=== PATIENT | male | born 1970 | race Caucasian/White ===

== ENCOUNTER → 2019-03-14 | Outpatient (CLI) | payer BC ==
--- NOTE | 2019-03-14 12:17 | CT ---
EXAMINATION TYPE: CT hip LT wo con DATE OF EXAM: 03/14/2019 COMPARISON: Non- HISTORY: Pain Lt Hip, severe posttraumatic osteoarthritis all per order. CT DLP: 355.6 mGycm Automated exposure control for dose reduction was used. FINDINGS: There is fusion plate through the posterior inferior aspect of the iliac bone extending along posteri or wall nearly to level of ischial tuberosity through healed fracture. There is small well-defined fr agmentation along medial aspect of the humeral head suggesting old in age measuring 1.4 x 0.3 cm seen best coronal image 33. There is moderate to severe collar spurring at head neck junction in the left femoral head. There is moderate to severe superior narrowing with subchondral cystic change and mode rate acetabular spurring on superior aspect of the acetabulum. Some mild acetabular bony spurring or overgrowth is noted. Muscle bulk in the left thigh is felt within normal limits. No suspicious hernia or adenopathy in the groin is present. IMPRESSION: POSTTRAUMATIC CHANGES WITH MODERATE TO SEVERE DEGENERATIVE CHANGE LEFT HIP DETAILED ABOVE
== END | disposition home or self-care (01) ==
LOC: RADCTMAIN 11:22
PROVIDERS: ATTEND Orthopaedic Surgery
DX: M16.52 Unilateral post-traumatic osteoarthritis, left hip (principal)

== ENCOUNTER → 2019-04-21 | Outpatient (CLI) | payer BC ==
[2019-04-21 08:19] LABS: Basophils % (A) 0 %; Eosinophils # (A) 0.2 k/uL (0-0.7); Eosinophils % (A) 3 %; HCT 44.7 % (39.0-53.0); HGB 14.4 gm/dL (13.0-17.5); Lymphocytes # (A) 1.7 k/uL (1.0-4.8); Lymphocytes % (A) 28 %; MCH 27.7 pg (25.0-35.0); MCHC 32.3 g/dL (31.0-37.0); MCV 85.6 fL (80.0-100.0); Mean Platelet Volume 7.7; Monocytes # (A) 0.4 k/uL (0-1.0); Monocytes % (A) 7 %; Neutrophils # (A) 3.5 k/uL (1.3-7.7); Neutrophils % (A) 60 %; Platelet Count 171 k/uL (150-450); RBC 5.22 m/uL (4.30-5.90); RDW 14.7 % (11.5-15.5); WBC 5.9 k/uL (3.8-10.6)
[2019-04-21 08:26] LABS: INR 0.9 (<1.2); Partial Thromboplastin Time 22.6 sec (22.0-30.0); Prothrombin Time 9.7 sec (9.0-12.0)
[2019-04-21 08:28] LABS: Appearance,Urine Clear (Clear); Bilirubin,Urine Negative (Negative); Blood,Urine Negative (Negative); Color,Urine Yellow; Glucose,Urine (UA) Negative (Negative); Ketones,Urine Negative (Negative); Leukocyte Esterase,Urine Negative (Negative); Nitrite,Urine Negative (Negative); PH, Urine 6.5 (5.0-8.0); Protein,Urine Negative (Negative); Urobilinogen,Urine <2.0 mg/dL (<2.0)
[2019-04-21 08:29] LABS: ALT 47 U/L (21-72); AST 29 U/L (17-59); African American GFR (CKD) >90 (>60 ml/min/1.73 sqM); Albumin 4.4 g/dL (3.5-5.0); Alkaline Phosphatase 44 U/L (38-126); Anion Gap 7 mmol/L; Blood Urea Nitrogen 21 mg/dL (9-20); Calcium 9.2 mg/dL (8.4-10.2); Carbon Dioxide 30 mmol/L (22-30); Chloride 106 mmol/L (98-107); Cholesterol 198 mg/dL (<200); Glucose 112 mg/dL (74-99); HDL Cholesterol 30 mg/dL (40-60); LDL Cholesterol,Calculated 120 mg/dL (0-99); Sodium 143 mmol/L (137-145); Total Bilirubin 1.1 mg/dL (0.2-1.3); Total Protein 7.2 g/dL (6.3-8.2); Triglycerides 241 mg/dL (<150)
== END | disposition home or self-care (01) ==
LOC: LABPAT 07:04
PROVIDERS: ATTEND Orthopaedic Surgery
DX: Z01.812 Encounter for preprocedural laboratory examination (principal); E78.2 Mixed hyperlipidemia; M16.12 Unilateral primary osteoarthritis, left hip
CPT/HCPCS: 36415; 80053; 80061; 81003; 85025; 85610; 85730; 87070

== ENCOUNTER → 2019-04-21 | Outpatient (CLI) | payer BC ==
--- NOTE | 2019-04-21 12:13 | EST ---
EXERCISE STRESS DATE OF SERVICE: 04/21/2019 AGE: 48 SEX: Male HT: 5'9" WT: 215 pounds PROTOCOL: Cardiolite Bartolome STAGE: IV DURATION OF EXERCISE: 10 minutes 30 seconds HEART RATE REST: 62 BLOOD PRESSURE REST: 116/92 MAXIMUM HEART RATE ACHIEVED: 164 MAXIMUM BLOOD PRESSURE: 215/96 85% MPHR: 145 100% MPHR: 171 METS: 12.1 INDICATIONS: Abnormal EKG. CLINICAL INFORMATION: Baseline rhythm is a sinus mechanism, rate of 62, borderline right axis deviation. Baseline blood pressure 116/92 mmHg. Patient exercised on Bartolome protocol for 10 minute 30 seconds reaching a peak rate 164 beats per minute which is equal to 96% maximum predicted heart rate. Peak blood pressure 215/96 mmHg. Test was terminated secondary to fatigue. There was no chest pain. Electrocardiograph monitoring revealed no evidence of diagnostic ischemic ST deviation. Cardiolite was injected at peak exercise. CONCLUSION: 1. Good exercise tolerance with normal electrocardiograph response to exercise. 2. Rare PVCs. 3. Nuclear images will be reported separately. MMODL / IJN: [id number] /
--- NOTE | 2019-04-21 13:36 | NM ---
EXAMINATION TYPE: NM stress cardiolite complete DATE OF EXAM: 04/21/2019 COMPARISON: NONE HISTORY: Abnormal EKG TECHNIQUE: After the intravenous administration of 9.9 mCi Tc 99m Sestamibi - Rest images obtained 4 5 minutes post injection. The patient exercised using a JESSE protocol and 1 minute prior to peak e xercise was injected with 26.4 mCi Tc 99m Sestamibi - Stress images obtained 30 minutes post injectio n. FINDINGS: Targeted heart rate was achieved during performance of the study. Review of stress and rest SPECT el ges demonstrates mild decreased uptake at the level of the cardiac apex on both stress and rest image s, perhaps somewhat greater on stress as compared to rest images. Gated analysis shows normal wall m otion with an estimated left ventricular ejection fraction of 66 %. IMPRESSION: There is some decreased uptake in the cardiac apex suggesting some stress-induced left ventricular my ocardial ischemia, results relayed telephonically to Jacinta in the office of Dr. Raines at the time of interpretation.
== END | disposition home or self-care (01) ==
LOC: RADNMMAIN 07:56
PROVIDERS: ATTEND Family Medicine
DX: R94.31 Abnormal electrocardiogram [ECG] [EKG] (principal)
CPT/HCPCS: 93017; 78452; A9500

== ENCOUNTER → 2019-05-02 | Outpatient (CLI) | payer BC ==
[2019-04-25 15:46] VITALS: BMI 32.6
== END | disposition home or self-care (01) ==
LOC: LABWHC1 07:21 → EDSTATUS 05-06 13:45
PROVIDERS: ATTEND Orthopaedic Surgery
DX: Z01.812 Encounter for preprocedural laboratory examination (principal); M16.0 Bilateral primary osteoarthritis of hip
CPT/HCPCS: 36415; 86850; 86900; 86901

== ENCOUNTER → 2019-07-09 | Outpatient (CLI) | payer BC ==
[2019-07-09 07:31] LABS: Appearance,Urine Clear (Clear); Bilirubin,Urine Negative (Negative); Blood,Urine Negative (Negative); Color,Urine Yellow; Glucose,Urine (UA) Negative (Negative); HCT 44.2 % (39.0-53.0); HGB 14.8 gm/dL (13.0-17.5); Ketones,Urine Negative (Negative); Leukocyte Esterase,Urine Negative (Negative); MCH 29.6 pg (25.0-35.0); MCHC 33.6 g/dL (31.0-37.0); MCV 88.2 fL (80.0-100.0); Mean Platelet Volume 6.8; Nitrite,Urine Negative (Negative); PH, Urine 6.5 (5.0-8.0); Platelet Count 186 k/uL (150-450); Protein,Urine Negative (Negative); RBC 5.01 m/uL (4.30-5.90); RDW 13.7 % (11.5-15.5); Specific Gravity,Urine 1.023 (1.001-1.035); Urobilinogen,Urine <2.0 mg/dL (<2.0); WBC 6.2 k/uL (3.8-10.6)
[2019-07-09 07:43] LABS: INR 0.9 (<1.2); Partial Thromboplastin Time 22.9 sec (22.0-30.0); Prothrombin Time 9.7 sec (9.0-12.0)
[2019-07-09 07:56] LABS: ALT 58 U/L (21-72); AST 33 U/L (17-59); African American GFR (CKD) >90 (>60 ml/min/1.73 sqM); Albumin 4.3 g/dL (3.5-5.0); Alkaline Phosphatase 47 U/L (38-126); Anion Gap 7 mmol/L; Blood Urea Nitrogen 19 mg/dL (9-20); Calcium 9.2 mg/dL (8.4-10.2); Carbon Dioxide 30 mmol/L (22-30); Chloride 107 mmol/L (98-107); Glucose 112 mg/dL (74-99); Potassium 5.2 mmol/L (3.5-5.1); Sodium 144 mmol/L (137-145); Total Bilirubin 0.9 mg/dL (0.2-1.3); Total Protein 7.2 g/dL (6.3-8.2)
== END | disposition home or self-care (01) ==
LOC: LABPAT 06:41
PROVIDERS: ATTEND Orthopaedic Surgery
DX: Z01.812 Encounter for preprocedural laboratory examination (principal); Z01.818 Encounter for other preprocedural examination; M16.12 Unilateral primary osteoarthritis, left hip
CPT/HCPCS: 36415; 80053; 81003; 85027; 85610; 85730; 87070

== ENCOUNTER 2019-07-15 10:05 | Inpatient (IN) | payer BC ==
[~2019-07-15 10:05] MED LIST: HYDROmorphone 0.5 MG/0.5 ML SYRINGE IVP PRN; LIDOCAINE 1% 20 ML VIAL (10MG/ML) FOR IV START INTRADERMA PRN; TRANEXAMIC ACID 1,000 MG in SODIUM CHLORIDE 0.9% 100 ML IVPB ONE
[2019-07-15] MEDS: ONDANSETRON 4 MG/2 ML VIAL IVP ONE ×3 (10:32→17:08)
[2019-07-15] MEDS ORDERED: MELOXICAM 7.5 MG TAB PO ONE ×2 (10:32)
[2019-07-15] MEDS: ACETAMINOPHEN TAB 500 MG TAB PO ONE ×2 (10:32→17:05)
[2019-07-15] MEDS: LACTATED RINGERS 1,000 ML IV SCH (10:47)
[2019-07-15] MEDS: ROPIVACAINE 246.25 MG, EPINEPHrine 0.5 MG, KETOROLAC 30 MG, cloNIDine HCL/PF 80 MCG, WA... MISCELLANE ONE ×15 (11:19→12:59)
[2019-07-15] MEDS ORDERED: ceFAZolin 3,000 MG in SODIUM CHLORIDE 0.9% IRRIGATIO 3,000 ML IRRIGATION ONE ×4 (11:23)
[2019-07-15] MEDS ORDERED: PROPOFOL 10 MG/ML 20 ML VIAL IV ONE (11:34)
[2019-07-15] MEDS ORDERED: HEPARIN SODIUM,PORCINE 10,000 UNIT/ML 1 ML VIAL ONE (11:34)
[2019-07-15] MEDS ORDERED: SODIUM CHLORIDE 0.9% 100 ML BAG ONE (11:34)
[2019-07-15] MEDS ORDERED: TRANEXAMIC ACID 1,000 MG/10 ML VIAL ONE (11:34)
[2019-07-15] MEDS ORDERED: SODIUM CHLORIDE 0.9% IRRIG 1,000 ML BTL IRRIGATION ONE (11:34)
[2019-07-15] MEDS ORDERED: ePHEDrine SULFATE/0.9% NACL/PF 50 MG/5 ML SYRINGE IV ONE (11:34)
[2019-07-15] MEDS ORDERED: MIDAZOLAM 2 MG/2 ML VIAL ONE (11:34)
[2019-07-15] MEDS ORDERED: HYDROmorphone 1 MG/ML 1 ML SYRINGE IVP PRN (11:51)
[2019-07-15] MEDS ORDERED: HYDROcodone/APAP 5-325MG 1 EACH TAB PO PRN (11:51)
[2019-07-15] MEDS ORDERED: ONDANSETRON 4 MG/2 ML VIAL IVP PRN (11:51)
[2019-07-15] MEDS ORDERED: MAGNESIUM HYDROXIDE 2,400 MG/10 ML CUP PO PRN (11:51)
[2019-07-15] MEDS ORDERED: HYDROmorphone 0.5 MG/0.5 ML SYRINGE IVP PRN ×2 (11:51)
[2019-07-15] MEDS ORDERED: DIAZEPAM 5 MG TAB PO PRN (11:51)
[2019-07-15] MEDS ORDERED: NALOXONE 0.4 MG/ML 1 ML VIAL IV PRN (11:51)
[2019-07-15] MEDS ORDERED: LACTATED RINGERS 1,000 ML IV ONE ×2 (12:57)
--- NOTE | 2019-07-15 13:16 | P.OP ---
Date of Procedure: 07/15/19 Preoperative Diagnosis: Severe osteoarthritis left hip Postoperative Diagnosis: Severe osteoarthritis left hip Procedure(s) Performed: Left total hip arthroplasty with a direct anterior approach Implants: James and nephew Polarstem size 5 standard James [employer] Nephew R3, 3 hole acetabular shell, 52 mm James [employer] Nephew reflection 6.5 mm cancellus screw, 20 mm, 15 mm James [employer] Nephew R3, XLPE 20 acetabular liner James & Nephew Oxinium femoral head 36 m, +4 All components were press-fit. The articulation is Oxinium on polyethylene. Anesthesia: spinal Surgeon: John Crowell Senior Ecologist #1: Tawnya Singh Estimated Blood Loss (ml): 200 (63 mL returned with Cell Saver) Pathology: other (Femoral head) Condition: stable Disposition: PACU Indications for Procedure: After failure of conservative treatment we discussed the surgical and nonsurgical treatment options at length. Patient wishes to proceed with a total hip arthroplasty with a direct anterior approach. Complications specific to this procedure were discussed at length, including but not limited to infection, leg length discrepancy, dislocation, and nerve injury. Patient is aware of all these complications and informed consent was obtained Operative Findings: The operative findings are consistent with severe osteoarthritis of the left hip Description of Procedure: Patient was seen and evaluated in the preoperative area, consent was reviewed, and the surgical site was marked with a skin marker. Patient was then brought to the operating room and given prophylactic antibiotics intravenously. 1 g of Tranexamic acid was also given. A spinal anesthetic was administered by the anesthesia department. The patient was then placed on the [place] table with the bony prominences well-padded. The hip area was then prepped and draped in usual sterile fashion. A universal timeout was then performed, which confirmed the patient's name, surgical site, ALLERGIES, and procedure being performed. Next the incision site was located at 1 cm distal and 1 cm lateral to the anterior superior iliac spine. The skin and subcutaneous tissues were sharply incised. Incision was carefully dissected down to the fascia overlying the tensor fascia tariq muscle. This fascia was then incised in line with the incision. Next, using blunt finger dissection, the tensor fascia tariq muscle was dissected off its investing fascia. The muscle was then carefully retracted laterally with a cobra retractor over the lateral neck of the femur. Next, the circumflex vessels were identified and cauterized using the AquaMantis device. The anterior hip capsule was then exposed. The capsule was then opened and an inverted T fashion. Cobra retractors were then placed intracapsularly. The proximal femur was then visualized. The femoral neck was then osteotomized appropriate level above the lesser trochanter. Small amount of traction was placed with the [place] table. A small wedge of bone was then removed from the remaining femoral head. Next, using a corkscrew femoral head was easily removed from the acetabulum. On gross visual inspection, the femoral head had complete loss of articular cartilage in mu ltiple periarticular osteophytes. Attention was then turned to the acetabulum. the acetabulum was exposed and any remaining labrum was excised. Sequential reaming of the acetabulum was performed using fluoroscopic guidance. When the appropriate size was reached, a trial was then placed. The position and fit of the trial was checked with fluoroscopy. The trial was then removed. Then, using fluoroscopic guidance, the final implant was impacted at 20 of anteversion and 40 of abduction, and fully seated in the acetabulum. 2 screws were then placed in the acetabulum. Again fluoroscopy was used to check position of the screws. Next, the liner was then impacted, with a 20 elevated liner located in the anterior superior quadrant. Component locking was confirmed. Attention was then directed to the femur. With the aid of the [place] table, the femur was externally rotated to approximately 130, extended, and abducted under the opposite leg. A side hook was then placed under the proximal femur, and the side hook elevator was used to elevate the proximal femur. Retractors were then placed. A capsular release was performed, as well as a release of the conjoined tendon, which afforded excellent visualization of the proximal femur. Next, a box osteotome was used to lateralize the proximal femur. A slasher hand was then used to locate the femoral canal. Sequential broaching was then performed with appropriate size which afforded excellent fixation in the proximal femur. A trial was then placed with appropriate head and neck, and the hip was gently reduced with the aid of the [place] table. Fluoroscopy was then used to check position of the components, as well as to ensure equal leg lengths. The hip was then gently dislocated and the trials were then removed. Final implants were then impacted and the hip was again reduced. Final fluoroscopic x-rays confirmed that the components were in anatomic position, as well as equal leg lengths. The hip was also taken through range of motion, and found to be stable. The hip was then copiously irrigated with antibiotic solution with pulsatile lavage. The hip was then irrigated with Irrisept solution. The soft tissues were then injected with a ropivacaine solution, which consisted of 246.25 mg of ropivacaine, 0.5 mg of epinephrine, 30 mg of Toradol, 80 g of clonidine, and 48.45 mL of sterile water, for a total of 100 mL of fluid injected. A second dose of 1 g of Tranexamic acid was also given. the fascia was then closed with 2-0 strata fix suture. The subcutaneous tissue was closed with 3-0 Vicryl. The subcuticular tissue was closed with 3-0 strata fix suture. The skin was then closed with Dermabond glue and a sterile silver dressing. The patient was then transferred to the recovery room in stable co ndition. The multimedia production assistant EILEEN Chaudhry was required due to the complexity of surgery, and the need for skilled surgical resident for positioning, draping, exposure, retraction, and closure of the wound.
--- NOTE | 2019-07-15 13:16 | FL ---
Fluoroscopy HISTORY: Anterior hip replacement 19 seconds fluoroscopy time supplied to the referring clinician. 2 intraoperative C-arm images docum ent the procedure. See dictated report from orthopedic surgery.
--- NOTE | 2019-07-15 13:16 | XR ---
Left hip HISTORY: Anterior hip replacement 2 intraoperative C-arm images document the procedure.
--- NOTE | 2019-07-15 14:15 | XR ---
EXAMINATION TYPE: XR Hip Limited LT DATE OF EXAM: 07/15/2019 CLINICAL HISTORY: Left hip pain and osteoarthritis. History of prior acetabular fracture. TECHNIQUE: Single AP portable view of left hip is obtained immediately postoperatively. COMPARISON: CT left hip March 14, 2019. FINDINGS: Metallic hardware from total left hip arthroplasty is seen and appears satisfactory in alig nment and position. There is evidence of recent surgery with subcutaneous gas noted laterally. Left acetabular surgical plate redemonstrated involving posterior wall. IMPRESSION: Metallic hardware from left hip arthroplasty is satisfactory in position.
[2019-07-15 17:03] VITALS: BMI 32.4
[2019-07-15] MEDS: SODIUM CHLORIDE 0.9% 1,000 ML IV SCH (17:07)
[2019-07-15] MEDS: ASPIRIN 325 MG TAB PO SCH (20:34)
[2019-07-15] MEDS ORDERED: SENNOSIDES-DOCUSATE SODIUM 1 EACH TAB PO SCH (21:00)
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
[2019-07-16] MEDS: HYDROcodone/APAP 5-325MG 1 EACH TAB PO PRN ×2 (01:48→07:06)
[2019-07-16] MEDS: hydrOXYzine PAMOATE 25 MG CAP PO PRN ×2 (01:48→07:06)
[2019-07-16] MEDS: SODIUM CHLORIDE 0.9% 1,000 ML IV SCH (02:55)
[2019-07-16 07:04] LABS: Basophils % (A) 0 %; Eosinophils # (A) 0.1 k/uL (0-0.7); Eosinophils % (A) 0 %; HCT 39.6 % (39.0-53.0); HGB 13.1 gm/dL (13.0-17.5); Lymphocytes # (A) 1.9 k/uL (1.0-4.8); Lymphocytes % (A) 14 %; MCH 29.8 pg (25.0-35.0); MCV 90.3 fL (80.0-100.0); Mean Platelet Volume 7.6; Monocytes # (A) 0.8 k/uL (0-1.0); Monocytes % (A) 6 %; Neutrophils # (A) 10.3 k/uL (1.3-7.7); Neutrophils % (A) 78 %; Platelet Count 179 k/uL (150-450); RBC 4.39 m/uL (4.30-5.90); RDW 15.7 % (11.5-15.5); WBC 13.3 k/uL (3.8-10.6)
[2019-07-16] MEDS: ASPIRIN 325 MG TAB PO SCH (07:06)
[2019-07-16 07:22] LABS: African American GFR (CKD) >90 (>60 ml/min/1.73 sqM); Anion Gap 8 mmol/L; Blood Urea Nitrogen 16 mg/dL (9-20); Calcium 9.1 mg/dL (8.4-10.2); Carbon Dioxide 29 mmol/L (22-30); Chloride 105 mmol/L (98-107); Glucose 116 mg/dL (74-99); Potassium 4.9 mmol/L (3.5-5.1); Sodium 142 mmol/L (137-145)
[2019-07-16 08:05] VITALS: BP 108/71; PULSE 81; RESP 16; TEMP 98.3
[2019-07-16] MEDS ORDERED: MELOXICAM 7.5 MG TAB PO SCH (09:00)
--- NOTE | 2019-07-16 09:06 | P.DS ---
Providers Date of admission: 07/15/19 10:05 Expected date of discharge: 07/16/19 Attending physician: John Crowell Consults: 07/15/19 11:51 Consult Physician Routine Consulting Provider: Vini Leslie Consult Reason/Comments: medical management Do you want consulting provider notified?: Yes Primary care physician: Inocencio Raines - Discharge Diagnosis(es) (1) Osteoarthritis of left hip Current Visit: Yes Status: Acute (2) Status post total hip replacement, left Current Visit: Yes Status: Acute Hospital Course: This is a 48-year-old male with known history of degenerative arthritis of the left hip. The patient presents for evaluation. After discussion and consideration patient elects to proceed with total hip arthroplasty. The patient is seen preoperatively by Dr. Crowell and medically cleared for surgery by their primary care physician. Patient is admitted to [facility] on 07/15/2019 for total hip arthroplasty. The procedures performed without complication or sequelae. The patient is doing well postoperatively. Labs and vital signs are stable on day of discharge. On day of discharge patient's hip incision is healing well. There is minimal erythema. There is no drainage noted at this time. There is minimal soft tissue swelling to the hip and thigh. Patient has full foot and ankle motion without difficulty or pain. Calf is soft and nontender to palpation. Neurovascular status to the left lower extremity is intact. Patient is discharged home in good condition. Opioid start talking form is reviewed and signed at patient bedside. Please see med rec for accurate list of home medications. Plan - Discharge Summary Discharge Rx Participant: Yes New Discharge Prescriptions: New Aspirin 325 mg PO BID #60 tab HYDROcodone/APAP 5-325MG [Morgan 5-325] 1 - 2 tab PO Q6HR PRN #56 tab PRN Reason: Pain Sennosides [Senokot] 1 tab PO BID #60 tablet No Action Multivitamins, Thera [Multivitamin (formulary)] 1 tab PO DAILY Vitamin B (Unknown Dose) 1 tab PO DAILY [place]-3 Fatty Acids/Fish Oil [Fish Oil 1,000 mg Softgel] 1 each PO DAILY Magnesium (Unknown Dose) 1 tab PO DAILY Ibuprofen 800 mg PO DAILY PRN PRN Reason: Pain Omeprazole 20 mg PO DAILY Discharge Medication List Ibuprofen 800 mg PO DAILY PRN 04/25/19 [History] Magnesium (Unknown Dose) 1 tab PO DAILY 04/25/19 [History] Multivitamins, Thera [Multivitamin (formulary)] 1 tab PO DAILY 04/25/19 [History] [place]-3 Fatty Acids/Fish Oil [Fish Oil 1,000 mg Softgel] 1 each PO DAILY 04/25/19 [History] Omeprazole 20 mg PO DAILY 04/25/19 [History] Vitamin B (Unknown Dose) 1 tab PO DAILY 04/25/19 [History] Aspirin 325 mg PO BID #60 tab 07/16/19 [Rx] HYDROcodone/APAP 5-325MG [Morgan 5-325] 1 - 2 tab PO Q6HR PRN #56 tab 07/16/19 [Rx] Sennosides [Senokot] 1 tab PO BID #60 tablet 07/16/19 [Rx] Follow up Appointment(s)/Referral(s): Feliberto Raines MD [Primary Care Provider] - 1 Week John Crowell DO [Doctor of Osteopathic Medicine] - 07/28/19 2:45 pm Activity/Diet/Wound Care/Special Instructions: Weightbearing as tolerated with walker. Leave dressing intact. Dressing may be removed by home care nurse or by patient in 10 days. May shower with dressing on. Recommend use of compression stockings daily for at least 2 weeks during the day to help prevent swelling and blood clots. May remove at night before sleeping. Please follow-up with [facility] in 2 weeks and call with any questions or concerns, . Discharge Disposition: HOME WITH HOME HEALTH SERVICES
[2019-07-16] MEDS: LACTATED RINGERS 1,000 ML IV SCH (09:29)
== END 2019-07-16 10:58 | disposition home or self-care (01) | DRG 470 ==
LOC: 2ORMAIN 10:05 → 4SSUR 13:20
PROVIDERS: ADMIT Orthopaedic Surgery; ATTEND Orthopaedic Surgery
PROC: 30233N0 Transfusion of Autologous Red Blood Cells into Peripheral Vein, Percutaneous Approach (ICD-10-PCS; 2019-07-15)
PROC: 0SRB06A Replacement of Left Hip Joint with Oxidized Zirconium on Polyethylene Synthetic Substitute, Uncemented, Open Approach (ICD-10-PCS; principal; 2019-07-15 13:15)
DX: M16.12 Unilateral primary osteoarthritis, left hip (principal); K21.9 Gastro-esophageal reflux disease without esophagitis; E78.5 Hyperlipidemia, unspecified; E78.00 Pure hypercholesterolemia, unspecified; E66.9 Obesity, unspecified; Z68.33 Body mass index [BMI] 33.0-33.9, adult; Z79.899 Other long term (current) drug therapy
CPT/HCPCS: 73501; 80048; 85025; 86850; 86891; 86900; 86901; 88300

== ENCOUNTER → 2019-08-13 | Outpatient (CLI) | payer BC ==
[2019-08-13 11:41] LABS: Protein, Total 6.5 g/dL (6.2-8.2)
[2019-08-13 12:05] LABS: C Reactive Protein <0.4 mg/dL (0.0-0.8); Calcium 9.3 mg/dL (8.7-10.3)
[2019-08-13 12:42] LABS: Anti-Smith Ab Interp NEGATIVE (NEGATIVE); Scleroderma SC-70 Ab <0.2 AI
[2019-08-13 13:24] LABS: Folate, Serum 11.7 ng/mL; Rheumatoid Factor <4 IU/mL (0-15); Thyroid Peroxidase Antibodies <28.0 U/mL (0.0-60.0)
[2019-08-14 11:12] LABS: Angiotensin-1 Converting Enz. 36 U/L (8-52)
[2019-08-14 13:27] LABS: C-ANCA <1:20 Titer (<1:20)
[2019-08-15 10:25] LABS: Lyme IgG/IgM 0.06 Index
[2019-08-15 12:57] LABS: Histone Antibody 0.5 UNITS (<1.0)
[2019-08-18 11:09] LABS: Gamma Globulin 0.92 g/dL (0.70-1.50)
== END | disposition home or self-care (01) ==
LOC: LABWHC1 06:36
PROVIDERS: ATTEND Otolaryngology Otolaryngology/Facial Plastic Surgery
DX: D64.9 Anemia, unspecified (principal); E53.9 Vitamin B deficiency, unspecified; E55.9 Vitamin D deficiency, unspecified; D52.9 Folate deficiency anemia, unspecified; E03.9 Hypothyroidism, unspecified; E06.3 Autoimmune thyroiditis; D82.4 Hyperimmunoglobulin E [IgE] syndrome; E21.3 Hyperparathyroidism, unspecified; E83.51 Hypocalcemia; M35.9 Systemic involvement of connective tissue, unspecified; M31.30 Wegener's granulomatosis without renal involvement; A53.9 Syphilis, unspecified; L94.0 Localized scleroderma [morphea]; D86.0 Sarcoidosis of lung; A69.20 Lyme disease, unspecified; M32.10 Systemic lupus erythematosus, organ or system involvement unspecified; M06.9 Rheumatoid arthritis, unspecified; M32.9 Systemic lupus erythematosus, unspecified; M35.00 Sjogren syndrome, unspecified; M46.90 Unspecified inflammatory spondylopathy, site unspecified; L95.9 Vasculitis limited to the skin, unspecified; D80.1 Nonfamilial hypogammaglobulinemia; R76.8 Other specified abnormal immunological findings in serum; R77.9 Abnormality of plasma protein, unspecified
CPT/HCPCS: 36415; 82164; 82306; 82310; 82607; 82746; 82785; 83516; 83520; 83970; 84165; 84439; 84443; 84481; 86038; 86140; 86162; 86235; 86255; 86376; 86431; 86618; 86780

== ENCOUNTER 2023-05-20 19:09 | Emergency (ER) | payer BC ==
[2023-05-20] MEDS ORDERED: FAMOTIDINE 20 MG/2 ML VIAL IV STA (19:26)
[2023-05-20] MEDS ORDERED: DEXAMETHASONE SOD PHOSPHATE 10 MG/ML 1 ML VIAL IVP STA (19:26)
[2023-05-20] MEDS ORDERED: diphenhydrAMINE 50 MG/ML 1 ML VIAL IVP STA (19:26)
[2023-05-20] MEDS ORDERED: SODIUM CHLORIDE 0.9% 1,000 ML IV STA (19:26)
[2023-05-20 19:27] VITALS: TEMP 96.7
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
[2023-05-20 20:23] LABS: ALT 43 U/L (4-49); AST 37 U/L (17-59); African American GFR (CKD) 84 (>60 ml/min/1.73 sqM); Albumin 4.1 g/dL (3.5-5.0); Alkaline Phosphatase 47 U/L (38-126); Anion Gap 8 mmol/L; Blood Urea Nitrogen 29 mg/dL (9-20); Calcium 8.7 mg/dL (8.4-10.2); Carbon Dioxide 25 mmol/L (22-30); Chloride 102 mmol/L (98-107); Glucose 103 mg/dL (74-99); Non-African American GFR(CKD) 73 (>60 ml/min/1.73 sqM); Phosphorus 3.2 mg/dL (2.5-4.5); Potassium 4.1 mmol/L (3.5-5.1); Sodium 135 mmol/L (137-145); Total Protein 6.8 g/dL (6.3-8.2)
[2023-05-20 20:48] LABS: Basophils % (A) 0 %; Eosinophils # (A) 0.1 k/uL (0-0.7); Eosinophils % (A) 2 %; HCT 43.2 % (39.0-53.0); HGB 14.6 gm/dL (13.0-17.5); Lymphocytes # (A) 3.7 k/uL (1.0-4.8); Lymphocytes % (A) 51 %; MCH 28.9 pg (25.0-35.0); MCHC 33.7 g/dL (31.0-37.0); MCV 85.5 fL (80.0-100.0); Mean Platelet Volume 8.4; Monocytes # (A) 0.5 k/uL (0-1.0); Monocytes % (A) 6 %; Neutrophils # (A) 2.7 k/uL (1.3-7.7); Neutrophils % (A) 37 %; Platelet Count 213 k/uL (150-450); RBC 5.06 m/uL (4.30-5.90); RDW 13.3 % (11.5-15.5); WBC 7.3 k/uL (3.8-10.6)
[2023-05-20] MEDS ORDERED: hydrOXYzine HCL 25 MG TAB PO STA (20:50)
[2023-05-20 21:03] VITALS: BP 130/76; PULSE 88; RESP 16
== END 2023-05-20 21:13 | disposition home or self-care (01) ==
LOC: EC 19:09
DX: T63.441A Toxic effect of venom of bees, accidental (unintentional), initial encounter (principal); R55 Syncope and collapse; K21.9 Gastro-esophageal reflux disease without esophagitis; M19.90 Unspecified osteoarthritis, unspecified site; Z79.899 Other long term (current) drug therapy
CPT/HCPCS: 36415; 93005; 80053; 83735; 84100; 84484; 85025; 99291; 96374; 96375; 96361; J0171; J1100